=== PATIENT | female | born 1995 | race African-American/Black ===

== ENCOUNTER 2017-06-24 09:21 | Observation (INO) | payer OTHER ==
[2017-06-24 10:57] LABS: ABS Basophils 0.1 10^3/ul (0-0.2); ABS Eosinophils 0.2 10^3/ul (0-0.6); ABS Lymphocytes 2.9 10^3/ul (1.0-4.8); ABS Monocytes 1.1 10^3/ul (0-0.8); ABS Neutrophils 6.7 10^3/ul (1.5-7.7); ABS Nucleated RBC 0 10^3/ul; Eosinophil % 2.3 % (0-6); Hematocrit 34 % (35-47); Hemoglobin 11.8 g/dl (12.0-16.0); Lymphocyte % 26.5 % (25-47); Mean Corpuscular HGB Conc 35 g/dl (31-36); Mean Corpuscular Hemoglobin 28 pg (27-31); Mean Corpuscular Volume 80 fL (80-97); Mean Platelet Volume 8.8 um3 (7.4-10.4); Nucleated Red Blood Cells % 0.2; Platelet Count 289 10^3/ul (150-450); Red Blood Count 4.23 10^6/ul (4.0-5.4); Red Cell Distribution Width 13 % (10.5-15)
[2017-06-24 11:11] LABS: EGFR Non-African American 88.9 (>60)
--- NOTE | 2017-06-24 19:20 | ED ---
Yaneth Crockett Gabriel, scribed for Vlad Faith MD on 06/24/17 at 0948 . Psychiatric Complaint - HPI Summary HPI Summary: This patient is a 22 year old F BIBA to [facility] for a MHE. Pt states she took 30 mg of vyvanse and her normal does of lexapro this morning. Hx of anxiety and ADHD. The patient does not respond to all questions. She attends [employer] and lives off campus - History Of Current Complaint Time Seen by Provider: 06/24/17 09:23 Hx Obtained From: Patient Onset/Duration: Still Present Timing: Constant Severity Initially: Moderate Severity Currently: Moderate Ingestion History: Type/Name Of Drug - lexapro - Allergies/Home Medications Allergies/Adverse Reactions: Allergies Allergy/AdvReac Type Severity Reaction Status Date / Time No Known Allergies Allergy Verified 02/25/16 08:35 Home Medications: Home Medications Escitalopram (NF) [Lexapro 20 mg (NF)] 20 mg PO DAILY 06/24/17 [History Confirmed 06/24/17] Lisdexamfetamine(NF) [Vyvanse(NF)] 30 mg PO DAILY 06/24/17 [History Confirmed ] Mirtazapine TAB* [Remeron TAB*] 15 mg PO DAILY 06/24/17 [History Confirmed 06/24] PMH/Surg Hx/FS Hx/Imm Hx Endocrine/Hematology History: Reports: Hx Anemia - BORDERLINE Denies: Hx Sickle Cell Disease Cardiovascular History: Denies: Other Cardiovascular Problems/Disorders Respiratory History: Denies: Other Respiratory Problems/Disorders GI History: Denies: Other GI Disorders History: Reports: Hx Kidney Stones - RIGHT KIDNEY SYMPTOMS SINCE 02/07/16 Sensory History: Denies: Hx Contacts or Glasses, Hx Hearing Aid Opthamlomology History: Denies: Hx Contacts or Glasses Neurological History: Denies: Other Neuro Impairments/Disorders Psychiatric History: Reports: Hx Anxiety - ON MEDS, Hx Depression - ON MEDS - Surgical History Surgery Procedure, Year, and Place: 02/20/16 URETERAL ST[place] [facility] [place] Anesthesia Reactions: No - Family History Known Family History: Negative: Renal Disease, Respiratory Disease, Seizure Disorder - Social History Occupation: Student Lives: Dormitory/Roommates Alcohol Use: Rare Alcohol Amount: 3 Q 2 WEEKS Substance Use Type: Reports: Marijuana Substance Use Comment - Amount & Last Used: RARE USE Smoking Status (MU): Never Smoked Tobacco Have You Smoked in the Last Year: No Review of Systems Negative: Skin Diaphoresis Positive: Depressed All Other Systems Reviewed And Are Negative: Yes Physical Exam - Summary Physical Exam Summary: General: well-appearing, no pain distress Skin: warm, color reflects adequate perfusion, dry Head: normal Eyes: EOMI, DANIELLE ENT: normal Neck: supple, nontender Respiratory: CTA, breath sounds present Cardiovascular: RRR Abdomen: soft, nontender Bowel: present Musculoskeletal: normal, strength/ROM intact Neurological: normal, sensory/motor intact, A&O x3 Psychological: depressed affect Triage Information Reviewed: Yes Vital Signs On Initial Exam: Initial Vitals Temp Pulse Resp BP Pulse Ox 99.9 F 105 16 131/87 97 06/24/17 09:40 06/24/17 09:40 06/24/17 09:40 06/24/17 09:40 06/24/17 09:40 Vital Signs Reviewed: Yes Diagnostics - Vital Signs Vital Signs Temp Pulse Resp BP Pulse Ox 06/24/17 17:56 98.7 F 103 18 124/107 100 06/24/17 11:28 98.7 F 107 18 116/89 100 06/24/17 09:40 99.9 F 105 16 131/87 97 - Laboratory Lab Results: Lab Results 06/24/17 06/24/17 Range/Units 10:35 10:35 WBC 11.0 H (3.5-10.8) 10^3/ul RBC 4.23 (4.0-5.4) 10^6/ul Hgb 11.8 L (12.0-16.0) g/dl Hct 34 L (35-47) % MCV 80 (80-97) fL MCH 28 (27-31) pg MCHC 35 (31-36) g/dl RDW 13 (10.5-15) % Plt Count 289 (150-450) 10^3/ul MPV 8.8 (7.4-10.4) um3 Neut % (Auto) 60.7 (38-83) % Lymph % (Auto) 26.5 (25-47) % [place] % (Auto) 9.8 H (0-7) % Eos % (Auto) 2.3 (0-6) % Baso % (Auto) 0.7 (0-2) % Absolute Neuts (auto) 6.7 (1.5-7.7) 10^3/ul Absolute Lymphs (auto) 2.9 (1.0-4.8) 10^3/ul Absolute Monos (auto) 1.1 H (0-0.8) 10^3/ul Absolute Eos (auto) 0.2 (0-0.6) 10^3/ul Absolute Basos (auto) 0.1 (0-0.2) 10^3/ul Absolute Nucleated RBC 0 10^3/ul Nucleated RBC % 0.2 Sodium 137 L (139-145) mmol/L Potassium 3.3 L (3.5-5.0) mmol/L Chloride 103 (101-111) mmol/L Carbon Dioxide 23 (22-32) mmol/L Anion Gap 11 (2-11) mmol/L BUN 9 (6-24) mg/dL Creatinine 0.80 (0.51-0.95) mg/dL Est GFR ( Amer) 114.3 (>60) Est GFR (Non-Af Amer) 88.9 (>60) BUN/Creatinine Ratio 11.3 (8-20) Glucose 90 (70-100) mg/dL Calcium 9.3 (8.6-10.3) mg/dL Total Bilirubin 0.50 (0.2-1.0) mg/dL AST 15 (13-39) U/L ALT 6 L (7-52) U/L Alkaline Phosphatase 44 (34-104) U/L Total Protein 7.6 (6.4-8.9) g/dL Albumin 4.1 (3.2-5.2) g/dL Globulin 3.5 (2-4) g/dL Albumin/Globulin Ratio 1.2 (1-3) TSH 5.45 (0.34-5.60) mcIU/mL Beta HCG, Quant < 0.60 mIU/mL Salicylates < 2.50 (<30) mg/dL Acetaminophen < 15 mcg/mL Serum Alcohol < 10 (<10) mg/dL Result Diagrams: 06/24/17 10:35 06/24/17 10:35 Lab Statement: Any lab studies that have been ordered have been reviewed, and results considered in the medical decision making process. Course/Dx - Course Assessment/Plan: The patient is a 22 year old female presenting with a psychiatric complaint. The patient was medically cleared for mental health evaluation. She is awaiting mental health evaluation at this time and will be signed out to Dr. Leavitt at shift change pending mental health evaluation. - Differential Dx/Clinical Impression Provider Diagnosis: Mental health problem Discharge - Sign-Out/Discharge Documenting (check all that apply): Sign-Out Patient Signing out patient TO: Dmitry Leavitt - Discharge Plan Condition: Stable Disposition[place] [facility] [place]errals: [facility] - Markel FAROOQ [Primary Care Provider] - - Billing Disposition and Condition Condition: STABLE Disposition: [facility] The documentation as recorded by the Yaneth loevll Gabriel accurately reflects the service I personally performed and the decisions made by , Vlad Faith MD.
[2017-06-24] MEDS ORDERED: Potassium Chlor TAB* 20 MEQ TAB.ER PO ONE (19:36)
[2017-06-24] MEDS ORDERED: cloNIDine TAB* 0.1 MG PO ONE (19:36)
[2017-06-24 20:41] LABS: Urine Appearance Cloudy; Urine Blood 2+ (Negative); Urine Color Yellow; Urine Ketones Negative (Negative); Urine Protein Negative (Negative); Urine Specific Gravity 1.008 (1.010-1.030); Urine Urobilinogen Negative (Negative)
[2017-06-24] MEDS ORDERED: GuaiFENesin DM* 5 ML UDC PO ONE (20:53)
[2017-06-24] MEDS ORDERED: Codeine TAB* 30 MG PO ONE (23:32)
[2017-06-25] MEDS ORDERED: LORazepam TAB(*) 1 MG PO ONE (01:45)
[2017-06-25] MEDS ORDERED: NS 0.9% 1000 ML* 2,000 ML IV ONE (04:27)
[2017-06-25] MEDS ORDERED: Lidocaine 2% EPI 1:200000 MPF*10-20 ML VIAL ONE (05:02)
[2017-06-25 05:39] LABS: ABS Basophils 0 10^3/ul (0-0.2); ABS Eosinophils 0.2 10^3/ul (0-0.6); ABS Lymphocytes 2.1 10^3/ul (1.0-4.8); ABS Monocytes 1.1 10^3/ul (0-0.8); ABS Neutrophils 7.2 10^3/ul (1.5-7.7); ABS Nucleated RBC 0 10^3/ul; Eosinophil % 2.2 % (0-6); Hematocrit 34 % (35-47); Hemoglobin 12.1 g/dl (12.0-16.0); Lymphocyte % 19.5 % (25-47); Mean Corpuscular HGB Conc 36 g/dl (31-36); Mean Corpuscular Hemoglobin 29 pg (27-31); Mean Corpuscular Volume 80 fL (80-97); Mean Platelet Volume 8.4 um3 (7.4-10.4); Nucleated Red Blood Cells % 0.1; Platelet Count 293 10^3/ul (150-450); Red Blood Count 4.19 10^6/ul (4.0-5.4); Red Cell Distribution Width 13 % (10.5-15); White Blood Count 10.6 10^3/ul (3.5-10.8)
[2017-06-25 05:56] LABS: EGFR Non-African American 85.2 (>60)
[2017-06-25] MEDS ORDERED: Docusate CAP* 100 MG PO PRN (06:28)
[2017-06-25] MEDS ORDERED: Acetaminophen TAB* 325 MG PO PRN (06:28)
[2017-06-25] MEDS ORDERED: Senna TAB PO PRN (06:28)
[2017-06-25] MEDS ORDERED: Ondansetron INJ* 2 MG/ML VIAL IV PRN (06:28)
[2017-06-25] MEDS ORDERED: Al Hydrox/Mg Hydrox/Simet LIQ* 30 ML UDC PO PRN (06:28)
[2017-06-25] MEDS ORDERED: NS 0.9% 1000 ML* 1,000 ML IV ONE (06:30)
[2017-06-25] MEDS ORDERED: NS 0.9% 1000 ML* 1,000 ML IV SCH ×2 (06:30→16:29)
--- NOTE | 2017-06-25 06:43 | ED ---
Lisa Crockett Thomas, scribed for Dmitry Leavitt MD on 06/24/17 at 1938 . Progress - Progress Note Progress Note: The patient is a sign out from Dr. Faith at shift change, pending mental health evaluation. I evaluated the patient at 19:20 on 06/24/17. The patients blood pressure was measured at 153/101. She is asymptomatic at this time. The drug screen is pending. The patient will be given clonidine 0.1 mg. At 06/25/17, the patient has been here 20 hours. She is still confused. Her drug screen is negative. The patient does have tachycardia. She is confused and there are no drugs on board. I attempted a spinal tap. LUMBAR PUNCTURE PROCEDURE NOTE: I did discuss the need for a spinal tap due to the confusion to rule out encephalopathy. The mother was hesitant to go forward with the spinal tap, but she agreed. The patient was no cooperative in lying still for the spinal tap. I did attempt three times, but the patient's mother asked me to stop. Therefore, the procedure was aborted and we did not complete the spinal tap. CT Head Interpreted by radiologist. Impression: Normal brain. No acute intracranial pathology. No hemorrhage. No visible infarct or mass. Osseous structures are intact. Dr. Leavitt has reviewed this report. EKG: Obtained at 05:39 Sinus tachycardia at 121 BPM Course/Dx - Diagnoses Provider Diagnoses: Confusion, Tachycardia - Provider Notifications Discussed Care Of Patient With: Sarah Pitts Time Discussed With Above Provider: 06:09 Instructed by Provider To: MD Will See In ED Discharge - Sign-Out/Discharge Documenting (check all that apply): Discharge - The patient will be admitted by Dr. Pitts. , Receiving Sign-Out Receiving patient FROM: Vlad Faith - Discharge Plan Condition: Stable Disposition: ADMITTED TO [facility] Markel FAROOQ [Primary Care Provider] - The documentation as recorded by the Lisa lovell Thomas accurately reflects the service I personally performed and the decisions made by Dagmar vasquez Abdul, MD.
[2017-06-25] MEDS: Benzonatate CAP* 100 MG PO PRN ×2 (07:27→22:24)
--- NOTE | 2017-06-25 08:10 | RAD ---
INDICATION: Confusion COMPARISON: None. TECHNIQUE: Contiguous axial sections of the brain were obtained from the skull base to the vertex without contrast. FINDINGS: The ventricles, cisterns and sulci are within normal limits. The peace-white matter differentiation is adequately maintained and there is no sulcal effacement. No significant focal abnormality or mass effect is present. There is no evidence for intracranial hemorrhage. No significant focal osseous abnormality is present. The visualized portion of the paranasal sinuses appear clear. The mastoid air cells are well aerated bilaterally. IMPRESSION: Normal CT of the brain.
--- NOTE | 2017-06-25 08:12 | RAD ---
HISTORY: Cough COMPARISONS: None VIEWS: 1: frontal portable view of the chest at 6:50 AM FINDINGS: LINES AND TUBES: None. CARDIOMEDIASTINAL SILHOUETTE: The cardiomediastinal silhouette is normal for portable technique. PLEURA: The costophrenic angles are sharp. No pleural abnormalities are noted. LUNG PARENCHYMA: There is asymmetric rounded density overlying the left lower lung measuring 1.8 cm in diameter. ABDOMEN: The upper abdomen is clear. There is no subphrenic gas. BONES AND SOFT TISSUES: No bone or soft tissue abnormalities are noted. IMPRESSION: 1.8 CM ROUNDED DENSITY OVERLYING THE LEFT LOWER LUNG. THIS MAY BE ARTIFACTUAL. RECOMMEND REPEAT IMAGING WITH PA, OBLIQUE, AND LATERAL VIEWS OF THE CHEST WITH NIPPLE MARKERS.
--- NOTE | 2017-06-25 10:38 | HP ---
CC: [facility] HISTORY AND PHYSICAL: DATE OF ADMISSION: 06/25/17 TIME OF EVALUATION: 0600. PRIMARY CARE PHYSICIAN: [facility]. CHIEF COMPLAINT: Altered mental status. HISTORY OF PRESENT ILLNESS: This is a 22-year-old female, [employer] student, who has a past medical history of depression, anxiety, ADHD, who presented to the emergency room for mental health evaluation and 9.41 status. The mother, who just arrived from [place], is at the bedside providing the history. She states that Cecilia's friend yesterday morning called the mom, concerned about her as she was pacing back and forth yesterday morning, would not answer any questions appropriately when mom tried to talk with her on phone and they felt that she should come to the emergency room for further evaluation. The patient has been in the emergency room for 21 hours. She was initially cleared by the ER physician, she was placed in the flex unit and then Mental Health evaluated, they were concerned about her altered mental status and persistent tachycardia and referred her back to medical evaluation before admitting her to the mental health unit. The mother states that the patient has had increase in stress. She last saw her back in February over and she felt that she was off and she was talking a lot about her friend, who committed suicide last year and she has been very upset by this and she had another friend that as well. The patient has been going to [facility] counseling 1 time a week for the past year. She tried to go to [facility], but she did not feel like they were as accessible for her. Mom states she has no history of altered mental status like this. She did have an episode where she was confused and the daughter felt it was due to ecstasy at that time last summer. In the emergency room, the patient has been still confused, not answering questions appropriately, shaking. She has been having some coughing. They were concerned about her elevated heart rate in the emergency room over the past 21 hours. The patient has gotten clonidine 0.1 mg , Robitussin 10 mL, lorazepam 2 mg, potassium chloride 40 mEq in 1 L of normal saline. I suspect due to the patient's altered mental status, she has not had anything to eat or drink, but it is unclear. PAST MEDICAL HISTORY: Depression, anxiety, ADHD, history of nephrolithiasis with stent placement. MEDICATIONS: 1. Remeron 15 mg p.o. daily. 2. Vyvanse 30 mg daily. 3. Lexapro 20 mg daily. ALLERGIES: No known drug allergies. FAMILY HISTORY: No history of mental health issues, it is unclear on the father 's side as mother is . 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 No history of tobacco, occasional alcohol and marijuana use per the mother, unclear of any other drug use. Her mother's name is Kacy. The patient is originally from [place]. REVIEW OF SYSTEMS: A 14-point review of systems attempted but unable to obtain due to the patient's altered mental status. PHYSICAL EXAMINATION GENERAL: The patient is sleeping and moaning, but does awake with gentle tactile stimulation, but does fall back to sleep easily. VITAL SIGNS: Temperature 98.1, pulse rate 100, respiratory rate 18, oxygen saturation 96% on room air, blood pressure 113/67. HEENT: Head is normocephalic. Pupils are equal and sluggish. Conjunctivae anicteric. Oropharynx: Mucous membranes are dry. NECK: Supple. No lymphadenopathy. RESPIRATORY: Clear to auscultation. No wheezes, rhonchi, or rales. CARDIAC: Tachycardia. No murmurs, rubs, or gallops. ABDOMEN: Soft, nontender. She did grimace with some pain when I palpated her abdomen. EXTREMITIES: No clubbing, cyanosis, or edema. DERM: No lesions or rashes. DIAGNOSTIC STUDIES/LAB DATA: White count 10.6, hemoglobin 12.1, hematocrit 34 , platelets 293. Sodium 134, potassium 4.2, chloride 103, bicarb 22, BUN 9, creatinine 0.83, glucose 104. TSH 5.4. Beta hCG is negative. Urine shows 2+ blood. Toxicology is negative except for positive cannabinoids. [place] screen is negative. Head CT: No acute intracranial abnormality. EKG shows sinus tachycardia with a rate of 121. 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 The patient has been persistently tachycardic and confused with unremarkable workup. Altered mental status and tachycardia. Assessment: I suspect this is related to ingestion and dehydration. The patient probably has not had much to eat or drink over the past 21 hours with the exception of 1 L of fluid. She is also on a stimulant that could increase her heart rate. She does have 2+ blood in her urine, and some abdominal discomfort. Appears she has been under a tremendous amount of stress and having a close friend committing suicide. Concern for multifactorial etiology contributing to her altered mental status. Plan: We will give her another bolus of fluid and put her on maintenance fluids. We will get an ultrasound of her kidneys and bladder to rule out a stone and consult Psychiatry for further evaluation. We will also check an ammonia to rule out any underlying potential encephalopathy, but less likely on the differential. I suspect with hydration, her heart rate will improve and the patient should be evaluated by Mental Health at that time. CHRONIC MEDICAL PROBLEMS: 1. I am going to hold her psychotropic agents and her Vyvanse for now in the setting of altered mental status and defer to Mental Health for further guidance on this. 2. FEN. We will place a bedside nursing swallow eval before allowing her to have a regular diet. 3. DVT prophylaxis. The patient scores as a 0. We will encourage ambulation. She will need a constant chemicals distiller as well. 4. Code status. Full code. PATIENT TIME: Greater than 45 minutes was spent doing the history and physical , more than half the time was spent in direct patient contact. [id number]/CPS #: [id number] MTDD
[2017-06-25 12:01] LABS: Urine Appearance Clear; Urine Blood 2+ (Negative); Urine Color Yellow; Urine Ketones 1+ (Negative); Urine Protein Negative (Negative); Urine Specific Gravity 1.012 (1.010-1.030); Urine Urobilinogen Negative (Negative)
--- NOTE | 2017-06-25 13:29 | CONSULT ---
Consult Consult: Psychiatry asked to see this 22 y.o. 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 eCcilia was barely arousable upon examination and the 1:1 aide indicated that she had been sleeping most of the day. rn staff indicates that patient making odd statements during brief periods of wakefulness. Patient has not endorsed SI or HI as far as documentation reveals. Due to inability to collect history from the patient I will revisit her tomorrow in the afternoon. Full dictated consultation report, with recommendations, to follow at that point. For now I will d/c 1:1 observations as no evidence that the patient is an acute risk to herself. Psychiatry will continue to follow.
--- NOTE | 2017-06-25 16:24 | PN ---
Subjective Date of Service: 06/25/17 Interval History: Patient very sleepy falling asleep mid sentence, not making much sense. States that she has been very depressed and stress and school. reports that she took some sleeping pills and smoked some marijuana. states that she is just very tired right now. denies any other complaints Family History: Unchanged from Admission Social History: Unchanged from Admission Past Medical History: Unchanged from Admission Objective Active Medications: Acetaminophen (Tylenol Tab*) 650 mg PO Q4H PRN PRN Reason: FEVER/PAIN Al Hydrox/Mg Hydrox/Simethicone (Maalox Plus*) 30 ml PO Q6H PRN PRN Reason: INDIGESTION Benzonatate (Tessalon Cap*) 100 mg PO BID PRN PRN Reason: COUGH Last Admin: 06/25/17 07:27 Dose: 100 mg Docusate Sodium (Colace Cap*) 100 mg PO BID PRN PRN Reason: CONSTIPATION Sodium Chloride (Ns 0.9% 1000 Ml*) 1,000 mls @ 150 mls/hr IV PER RATE DREAD Last Admin: 06/25/17 09:17 Dose: 150 mls/hr Ondansetron HCl (Zofran Inj*) 4 mg IV Q4H PRN PRN Reason: NAUSEA/VOMITING Senna (Senokot Tab*) 1 tab PO BID PRN PRN Reason: CONSTIPATION Vital Signs - 8 hr 06/25/17 06/25/17 06/25/17 08:18 15:47 15:59 Temperature 98.6 F Pulse Rate 103 118 108 Respiratory 17 21 Rate Blood Pressure 101/72 85/69 119/77 (mmHg) O2 Sat by Pulse 98 100 Oximetry Oxygen Devices in Use Now: None Appearance: appears tired, hard to keep awake Eyes: No Scleral Icterus Ears/Nose/Mouth/Throat: Clear Oropharnyx, Mucous Membranes Moist Neck: NL Appearance and Movements; NL JVP, Trachea Midline Respiratory: Symmetrical Chest Expansion and Respiratory Effort, Clear to Auscultation Cardiovascular: RRR, No Edema Abdominal: NL Sounds; No Tenderness; No Distention Extremities: No Edema, No Clubbing, Cyanosis Skin: No Rash or Ulcers Neurological: Alert and Oriented x 3 Nutrition: Taking PO's Result Diagrams: 06/25/17 05:29 06/25/17 05:29 Additional Lab and Data: Lab Results 06/24/17 06/24/17 Range/Units 10:35 10:35 WBC 11.0 H (3.5-10.8) 10^3/ul RBC 4.23 (4.0-5.4) 10^6/ul Hgb 11.8 L (12.0-16.0) g/dl Hct 34 L (35-47) % MCV 80 (80-97) fL MCH 28 (27-31) pg MCHC 35 (31-36) g/dl RDW 13 (10.5-15) % Plt Count 289 (150-450) 10^3/ul MPV 8.8 (7.4-10.4) um3 Neut % (Auto) 60.7 (38-83) % Lymph % (Auto) 26.5 (25-47) % [place] % (Auto) 9.8 H (0-7) % Eos % (Auto) 2.3 (0-6) % Baso % (Auto) 0.7 (0-2) % Absolute Neuts (auto) 6.7 (1.5-7.7) 10^3/ul Absolute Lymphs (auto) 2.9 (1.0-4.8) 10^3/ul Absolute Monos (auto) 1.1 H (0-0.8) 10^3/ul Absolute Eos (auto) 0.2 (0-0.6) 10^3/ul Absolute Basos (auto) 0.1 (0-0.2) 10^3/ul Absolute Nucleated RBC 0 10^3/ul Nucleated RBC % 0.2 Sodium 137 L (139-145) mmol/L Potassium 3.3 L (3.5-5.0) mmol/L Chloride 103 (101-111) mmol/L Carbon Dioxide 23 (22-32) mmol/L Anion Gap 11 (2-11) mmol/L BUN 9 (6-24) mg/dL Creatinine 0.80 (0.51-0.95) mg/dL Est GFR ( Amer) 114.3 (>60) Est GFR (Non-Af Amer) 88.9 (>60) BUN/Creatinine Ratio 11.3 (8-20) Glucose 90 (70-100) mg/dL Calcium 9.3 (8.6-10.3) mg/dL Total Bilirubin 0.50 (0.2-1.0) mg/dL AST 15 (13-39) U/L ALT 6 L (7-52) U/L Alkaline Phosphatase 44 (34-104) U/L Total Protein 7.6 (6.4-8.9) g/dL Albumin 4.1 (3.2-5.2) g/dL Globulin 3.5 (2-4) g/dL Albumin/Globulin Ratio 1.2 (1-3) TSH 5.45 (0.34-5.60) mcIU/mL Beta HCG, Quant < 0.60 mIU/mL Salicylates < 2.50 (<30) mg/dL Acetaminophen < 15 mcg/mL Serum Alcohol < 10 (<10) mg/dL Assess/Plan/Problems-Billing Assessment: Ms. Pierce is a 22 y.o female with a history of depression, anxiety and ADHD who presented to the emergency room for mental health evaluation. The patient was found pacing in her room not making sense. - Patient Problems (1) Depression Current Visit: Yes Status: Acute Code(s): F32.9 - MAJOR DEPRESSIVE DISORDER , SINGLE EPISODE, UNSPECIFIED SNOMED Code(s): 45711415 Comment: -Suspect this is releated increased stress at school and recent of friends - will continue supportive care - diet as tolerated - psych consulted (2) Anxiety Current Visit: Yes Status: Acute Code(s): F41.9 - ANXIETY DISORDER, UNSPECIFIED SNOMED Code(s): 00118638 Comment: supoortive care (3) DVT prophylaxis Current Visit: Yes Status: Acute Code(s): CIG3043 - SNOMED Code(s): 691635868 Comment: ambulate (4) Full code status Current Visit: Yes Status: Acute Code(s): Z78.9 - OTHER SPECIFIED HEALTH STATUS SNOMED Code(s): 283236838 Status and Disposition: inpatient
[2017-06-26] MEDS: Benzonatate CAP* 100 MG PO PRN (04:28)
[2017-06-26 11:50] VITALS: BP 117/85
[2017-06-26] MEDS ORDERED: Phenytoin CHEW TAB(*) 50 MG PO SCH (14:00)
--- NOTE | 2017-06-27 01:07 | DS ---
CC: [facility]* DISCHARGE SUMMARY: DATE OF ADMISSION: 06/25/17 DATE OF DISCHARGE: 06/26/17 ATTENDING PHYSICIAN: Angelica Sunshine MD* (dictated by Cecilia Bird NP). PRIMARY CARE PROVIDER: [facility]. PRIMARY DIAGNOSES: 1. Unspecified psychosis. 2. Possible overdose of cannabinoids. SECONDARY DIAGNOSES: 1. Depression. 2. Anxiety. 3. Attention deficit hyperactivity disorder. STUDIES COMPLETED WHILE IN THE HOSPITAL: She had a CT of the brain on 06/25/17 , normal CT of the brain. She had an EKG on 06/25/17, which showed sinus tachycardia at a rate of 121. She did have a chest x-ray during this hospitalization. Radiologist impression : There is a 1.8 cm round density overlying the left lower lung. This may be artifactual. Recommend repeat imaging with PA, oblique, and lateral views of the chest with nipple markers. She should have a repeat chest x-ray PA and lateral with nipple markers to evaluate this 1.8 cm round density. DISCHARGE MEDICATIONS: Tessalon Perles 100 mg p.o. b.i.d. Continued home medications: 1. Remeron 15 mg p.o. daily. 2. Vyvanse 30 mg p.o. daily. 3. Lexapro 20 mg p.o. daily. 4. She is going to continue with acetaminophen 650 mg p.o. q.4 hours as needed for pain. HISTORY OF PRESENT ILLNESS AND HOSPITAL COURSE: Ms. Pierce is a 22-year-old female who is currently a [employer] student with a past medical history of depression, anxiety, ADHD, who presented to the emergency room for mental health evaluation on a 9.41 status with [facility] police. Per the report, the mother states that Cecilia's friend called her yesterday morning concerned about her as she was pacing back and forth yesterday morning and would not answer any questions appropriately when mom tried to talk to her on the phone and they felt that she should come to the emergency room for further evaluation. She had been in the emergency room for 21 hours. The patient was initially cleared by the emergency room physician and placed in the flex unit and then mental health evaluation. They were concerned about her altered mental status and persistent tachycardia and referred back to medical evaluation before admitting her to the mental health unit. The mother states that she has increased stress. She saw her last in February over and she felt that she was off and was talking a lot about her friend, who committed suicide last year and she has been very upset by this and she had another friend who as well. The patient has been seeking outpatient therapy from [facility] once a week for the past year. During her hospitalization, she was monitored on telemetry. Her tachycardia subsided. She did receive IV hydration. On the evening of 06/25/17, the patient was alert and oriented and conversing. She is tearful at times discussing college and all the stress related to her current studies. She does make bizarre statements at times. She was evaluated on 06/26/17. She was alert and oriented x3. We discussed her college plans and at this time she has a plan to return to [place] with her mother as she does not feel she can complete her college courses at this time. She also received a psychiatric consult from Dr. Hong during this admission. He felt that she needed to be observed in the mental health unit. At this time, she is stable to be transferred to the mental health unit for further evaluation and support psychiatrically. Ms. Pierce will be transferred to mental health today on . Vital signs are as follows: Temperature was 97.9, heart rate was 83, respirations 16, O2 saturation was 100%, blood pressure 120/68 and 117/85. DISCHARGE PLAN: Ms. Pierce will be discharged to mental health unit. 1. Activity as tolerated. 2. Depression and anxiety. Acute psychosis. Management per mental health unit. FOLLOWUP: The patient should follow up with outpatient counseling as prescribed by the mental health unit when she is able to be discharged from the mental health unit. The patient should return to the emergency room if she develops any suicidal or homicidal ideation, any increased depression or anxiety or any other concerning symptoms such as chest pain or shortness of breath. At this time, she will be placed in the mental health unit. These symptoms can be observed at this time. This is a summarization of her hospitalization. For further details, please see the entire medical record. TIME SPENT: Time spent on this discharge was approximately 60 minutes, greater than half that time was spent with the patient discussing transfer plans to the mental health unit. CONDITION ON DISCHARGE: Stable. CECILIA BIRD, STITCHING MACHINE FEEDER OR OFFBEARER [id number]/[facility] #: [id number] T[facility] HOSPITALMadai
== END 2017-06-26 18:00 ==
LOC: ED 09:21 → MED 06-25 06:28 → BSU 06-26 17:59
PROVIDERS: ADMIT Pediatrics; ATTEND Pediatrics
DX: F29 Unspecified psychosis not due to a substance or known physiological condition (principal); F41.9 Anxiety disorder, unspecified; F32.9 Major depressive disorder, single episode, unspecified; F90.9 Attention-deficit hyperactivity disorder, unspecified type; Z79.899 Other long term (current) drug therapy; R10.9 Unspecified abdominal pain; R00.0 Tachycardia, unspecified; J98.4 Other disorders of lung
CPT/HCPCS: 36415; 70450; 71045; 80053; 80061; 80307; 80320; 80329; 81003; 81015; 82140; 82550; 83036; 83605; 84443; 84702; 85025; 86308; 87086; 93005; 96360; 96361; 99285; A9270-GY; G0378; G0480

== ENCOUNTER 2017-06-26 16:00 | Inpatient (IN) | payer OTHER ==
[2017-06-26] MEDS ORDERED: Al Hydrox/Mg Hydrox/Simet LIQ* 30 ML UDC PO PRN (16:23)
--- NOTE | 2017-06-26 19:59 | HP ---
PSYCHIATRIC HISTORY AND PHYSICAL: DATE OF ADMISSION: 06/26/17 JUSTIFICATION FOR ADMISSION: The patient is in need of 24-hour supervision and care secondary to psychotic and bizarre behaviors rendering it impossible and unsafe to treat her in a less restrictive setting. 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 The patient is accompanied by her mother, Chanelle, who indicates that she lives in and was called several days ago by one of the patient's friends indicating that Cecilia was acting strangely. She promptly got a plane ticket to come here. In the intervening time, the friend called the police and 911 and the patient was transferred by emergency medical services to the hospital. At that time, she was briefly evaluated in the ED flex base but was extremely tachycardic despite receiving p.o. Ativan. For this reason, she was instead hospitalized on the medical service. There, I tried to interview her on 06/25/17; however, she was extremely sedated and her mother was not present at that time. I was able to reach her outpatient therapist, a woman named Sima Vaca. Sima indicated that the patient has always had problems with depression and anxiety, but when they last saw each other 1 week ago, she noted that the patient was speaking very fast. She appeared to be labile, bursting into tears at times. She denied suicidal or homicidal ideations and so they allowed her to leave with a planned followup later this week. Sima was aware of occasional THC usage as well as 2 recent losses, one of the patient's friends of suicide in December of 2016 and a half year earlier, the patient had lost a separate friend to heart failure. She had recently taken a semester off due to intractable anxiety and she is currently a 5th year senior. Later, I spoke with the patient's outpatient nurse practitioner, Yohana Sanchez, who states that she started working with Cecilia in March and that she had a classic diagnosis of anxiety, depression, and ADHD. They had played around with her Vyvanse dosing, but she had trouble sleeping and appetite disturbances and was therefore started recently on mirtazapine. On the date of admission, I reevaluated the patient and found her awake and alert in bed. She was accompanied by her mother, Chanelle. Chanelle immediately showed me her phone in which she had typed down some odd statements that Cecilia had been making during the day to the effect that she was turning into a turtle and that she was angry. When I spoke with Cecilia at times, she had moments of lucidity but at other times, she was bizarre, for example, making statements that "I think in color, but the TV is in black and white, I have no fingerprints" and was also mentioning that she had a glass bong that she had lost within a pool of water. For these reasons, I strongly suggested transfer to the inpatient psychiatric service and both the patient and her mother were agreeable with this. In terms of recent stressors, the patient has been struggling in school because of ADHD and because the recent loss of her 2 friends. She also feels unsupported and belittled by classmates with whom she is doing group projects. She was supposed to graduate in 3 weeks from now from [employer], but had no plans for work thereafter and was starting to get stressed about what she would do with her life. She does indicate that she went 3 days without sleeping prior to this event occurring over the previous several days. An additional stressor is that she went to a local herbal store and was taking some strange herbal supplements called adaptogen. It is uncertain whether these contributed to her current mental state. I do note that her urine drug screen is dirty for cannabis and she does endorse smoking a great deal of marijuana recently. PAST PSYCHIATRIC HISTORY: As previously noted, she sees Sima Washington and Shirley Sanchez at the local [facility]. Prior to this, she had seen a psychiatrist at [facility]. In the past, she has been treated with fluoxetine, methylphenidate, Wellbutrin, and Strattera , all with limited efficacy. Currently, she receives Vyvanse 30 mg daily, Lexapro 20 mg daily, and Remeron 15 mg daily. She has a no prior history of suicide attempts. She has no prior history of psychiatric hospitalizations. I asked about abuse or neglect growing up and she indicates that she was somewhat estranged from her father because he was often invalidating and unkind to her. SUBSTANCE ABUSE HISTORY: Significant for a large amounts of cannabis. She denies any use of alcohol or tobacco. PAST MEDICAL HISTORY: Significant for an upper respiratory tract viral infection currently, but negative otherwise. CURRENT MEDICATIONS: Include: 1. Vyvanse 30. 2. Lexapro 20. 3. Remeron 15. ALLERGIES: She denies having any known drug allergies. FAMILY HISTORY: Noncontributory. SOCIAL HISTORY: The patient was born and raised in [place], [place]. Her parents when she was young and she is an only child. She did well in high school and was able to get into [employer] and she is a dual major. 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 Her grades tend to be fair, although she has taken a semester off in the past due to anxiety. She is currently a 5th year senior, who does not know at this time what she will do after graduation. The patient is not currently in any significant relationship. She has never been in the and has no active legal problems. REVIEW OF SYSTEMS: The patient is endorsing significant rhinorrhea and cough. Other than this, she denies headache or double vision. She denies sore throat, chest pain, or difficulty breathing. She denies abdominal pain, nausea, vomiting, diarrhea, or constipation. She denies difficulty ambulating, rashes, enlarged lymph nodes, fevers, or changes in weight. PHYSICAL EXAMINATION VITAL SIGNS: Blood pressure 117/85, heart rate is 83, respiratory rate 16, temperature 97.9 degrees Fahrenheit, oxygen saturations are 95% on room air. HEENT: Head is normocephalic, atraumatic. NECK: Supple. CHEST: Clear to auscultation bilaterally. CARDIAC: Exam reveals normal heart sounds. ABDOMEN: Soft, nontender. MUSCULOSKELETAL: Exam reveals no sign of edema. NEUROLOGICAL: She is grossly intact with no focal deficits. SKIN: Warm and dry. MENTAL STATUS EXAMINATION: The patient is a young, petite, female, with long dreadlock hair, partially in tressa. She is calm, cooperative , but somewhat oddly related. Speech is halting at times. Mood appears to be anxious with a corresponding anxious affect. Thought process is linear and goal directed. Thought content is significant for odd statements and beliefs such as not having any fingerprints. She denies auditory or visual hallucinations. She denies suicidal or homicidal ideations. Insight and judgment are somewhat limited given her abuse of cannabis recently and not taking prescribed medications. Cognitively, she is awake and alert with what would appear to be an average intellect. LABORATORY DATA: Her complete blood count indicates mildly low hematocrit of 34 , complete metabolic panel significant for slightly elevated glucose of 104, slightly low sodium of 134. TSH is mildly elevated at 5.71. Urinalysis is significant for 2+ blood and trace leukocytes esterases. Urine drug screen is positive for cannabinoids and negative for all other substances including amphetamines despite the fact that she is on a psychostimulant. DIAGNOSES: As follows: [place] I: Unspecified psychotic disorder, rule out bipolar karen with psychotic features versus substance-induced psychotic disorder; cannabis use disorder; major depressive disorder by history, attention deficit hyperactivity disorder by history. [place] II: Deferred. ASSESSMENT: The patient is a 22-year-old, single, female, [employer] [facility], in the [employer] studies department, who was brought in by ambulance after her friends called 911 because she was acting strange. She was subsequently admitted to the medical service due to tachycardia, but her heart rates have normalized and she is now pending admission to the behavioral science unit secondary to psychosis and bizarre behavior. It is uncertain whether this represents a primary mental illness which is perhaps bipolar disorder versus her abusing both cannabis and herbal substances from the community. PLAN: The patient is admitted to the adult behavioral health unit where she is placed on q.15-minute checks for her own safety. We will be holding all of her meds and seeing if detoxifying her from cannabis and herbal substances is enough to get her euthymic and restore her reality testing. If not, we may move towards the bipolar disorder diagnosis in which we would be likely starting an antipsychotic and a mood stabilizer. The patient and her mother are agreeable but I am going to put them on an involuntary status in the event that the patient attempts to elope during the state of confusion. [facility] where she sees Yohana Sanchez and Sima Washington. [id number]/[facility] #: [id number] [facility]OL[facility] HEALTHMadai
--- NOTE | 2017-06-27 12:49 | PN ---
Subjective - Subjective Date of Service: 06/27/17 Service Type: 35505 Hosp care 15 min low complexity Subjective: Justino is found in her room sleeping, but is easily aroused. She remains bizarre, telling me a story about how she searched her glass bong with a black light to see if any impurities could be found in the water that would explain her symptoms. "And then I saw the water glowing and I saw that my skin was glowing." She hands me a paper with incoherent scribblings and says it's an account of her former friends in [place]. "I don't even know if they're still alive, many of them were ." She denies SI or HI. Mother, Chanelle, is in town from [place] and remains concerned about the patient's wellbeing. Objective - Appearance Appearance: Thin Framed Hygiene: Normal Grooming: Fairly Well Kept - Behavior Psychomotor Activities: Normal Exhibits Abnormal Movement: No - Attitude and Relatedness Attitude and Relatedness: Psychotically Related Eye Contact: Fair - Speech Quality: Pressured Latencies: Short Quantity: Copious - Mood Patient's Decription of Mood: "Okay" - Affect Observed Affect: Expansive Affect Consistent with: Euthymia - Thought Process Patient's Thought Process: Disorganized Thought Content: Yes Paranoid Ideation, No Passive Wish, No Suicidal Planning, No Homicidal Ideation - Sensorium Experiencing Hallucinations: No, Sensorium is Clear Type of Hallucinations: Visual: No, Auditory: No, Command: No - Level of Consciousness Level of Consciousness: Alert Orientation: Yes Intact, Yes Orientated to Time, Yes Orientated to Place, Yes Orientated to Person - Impulse Control Impulse Control: Poor - Insight and Judgement Insight and Judgement: Impaired - Group Participation Particating in Group Activities: No - Medication Management Medication Management Adherence: Yes Assessment - Assessment Merits Inpatient Hospitalization: For Immediate Safety, For Stabilization Inpatient DSM-V Dx: F29 Clinical Impression: 22 y.o. 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 Plan - Plan Treatment Plan: Name: JUSTINO FOSTER Birthdate: 1995 [id number] The patient remains psychotic. We are uncertain of the etiology: substance induced versus bipolar karen. Currently we are holding all meds and attempting to detoxify her. If she remains symptomatic we may lean towards a bipolar diagnosis and initiate mood stabilizer and antipsychotic therapy. Continue inpatient care. Continued Medication Management: Consider Medication Medications: Current Medications Acetaminophen (Tylenol Tab*) 650 mg PO Q4H PRN PRN Reason: for pain; or Temp >101 F Al Hydrox/Mg Hydrox/Simethicone (Maalox Plus*) 30 ml PO Q4H PRN PRN Reason: INDIGESTION Quetiapine Fumarate (Seroquel Tab*) 50 mg PO Q6H PRN PRN Reason: ANXIETY - Discharge Plan Discharge Plan: Inpatient Hospitalization
[2017-06-27] MEDS: QUEtiapine TAB* 25 MG PO PRN (20:46)
[2017-06-27] MEDS: Acetaminophen TAB* 325 MG PO PRN (20:46)
[2017-06-28] MEDS: Acetaminophen TAB* 325 MG PO PRN ×2 (05:52→12:41)
[2017-06-28] MEDS: QUEtiapine TAB* 25 MG PO PRN ×2 (09:25→20:45)
[2017-06-28] MEDS: Benzocaine/Menthol LOZ* 1 LOZENGE PO PRN ×3 (12:43→20:45)
[2017-06-29] MEDS: Benzocaine/Menthol LOZ* 1 LOZENGE PO PRN ×6 (01:50→22:01)
[2017-06-29] MEDS: QUEtiapine TAB* 25 MG PO PRN (10:13)
--- NOTE | 2017-06-29 11:27 | PN ---
[facility]: Group Therapy Note - Service Type Service Type: 68583 Group Psychotherapy - Cognitive Behavioral Group Therapy ( CBT):Patient was attentive and participatory in CBT programming this morning, and remained in good behavioral control. Patient expressed positive insights regarding relevant treatment interventions and goals.
--- NOTE | 2017-06-29 14:24 | PN ---
Subjective - Subjective Date of Service: 06/29/17 Service Type: 27712 Hosp care 15 min low complexity Subjective: Justino continues to show evidence of paranoid thought process and confusion, although it is not as pronounced as over the weekend. She's accepted a few prn administrations of low-dose quetiapine for anxiety and is agreeable with starting this on a scheduled basis at night. She remains isolative in her room and has only come out for a few groups here and there. She makes paranoid statements to the effect that she doesn't want to return to [employer] to complete her degree because it's prejudicial and "I don't want to give [place] anymore of my information." She shows me a journal in which she's scrawled incoherent statements and people's names whom she says have in her life. She denies SI or HI but admits that she's having trouble organizing her thoughts. Objective - Appearance Appearance: Well Developed/Nourished Dysmorphic Features: No Hygiene: Normal Grooming: Well Kept - Behavior Psychomotor Activities: Normal Exhibits Abnormal Movement: No - Attitude and Relatedness Attitude and Relatedness: Psychotically Related Eye Contact: Fair - Speech Quality: Unpressured Latencies: Normal Quantity: Appropriate - Mood Patient's Decription of Mood: "Upset" - Affect Observed Affect: Expansive Affect Consistent with: Dysphoria - Thought Process Patient's Thought Process: Disorganized Thought Content: Yes Paranoid Ideation, No Passive Wish, No Suicidal Planning, No Homicidal Ideation - Sensorium Experiencing Hallucinations: No, Sensorium is Clear Type of Hallucinations: Visual: No, Auditory: No, Command: No - Level of Consciousness Level of Consciousness: Alert Orientation: Yes Intact, Yes Orientated to Time, Yes Orientated to Place, Yes Orientated to Person - Impulse Control Impulse Control: Poor - Insight and Judgement Insight and Judgement: Impaired - Group Participation Particating in Group Activities: No - Medication Management Medication Management Adherence: Yes Assessment - Assessment Merits Inpatient Hospitalization: For Immediate Safety, For Stabilization Inpatient DSM-V Dx: F29 Clinical Impression: 22 y.o. 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 Plan - Plan Treatment Plan: Name: JUSTINO PINK Birthdate: 1995 [id number] The patient remains psychotic despite detoxification from cannabis and other herbal supplements she was taking prior to admission. We are uncertain of the etiology: substance induced versus bipolar karen, although, the longer she remains paranoid and confused the more would seem to point to an underlying primary mental illness. We will start scheduled antipsychotic therapy with quetiapine 100mg PO qhs. Continue inpatient care. Continued Medication Management: Start Medication Medications: Current Medications Acetaminophen (Tylenol Tab*) 650 mg PO Q4H PRN PRN Reason: for pain; or Temp >101 F Last Admin: 06/28/17 12:41 Dose: 650 mg Al Hydrox/Mg Hydrox/Simethicone (Maalox Plus*) 30 ml PO Q4H PRN PRN Reason: INDIGESTION Quetiapine Fumarate (Seroquel Tab*) 50 mg PO Q6H PRN PRN Reason: ANXIETY Last Admin: 06/29/17 10:13 Dose: 50 mg Quetiapine Fumarate (Seroquel Tab*) 100 mg PO BEDTIME DREAD Throat Lozenges (Chloraseptic Marisela*) 1 marisela PO Q2H PRN PRN Reason: SORE THROAT Last Admin: 06/29/17 12:26 Dose: 1 marisela - Discharge Plan Discharge Plan: Inpatient Hospitalization
[2017-06-29] MEDS ORDERED: QUEtiapine TAB* 100 MG PO SCH (21:00)
[2017-06-30] MEDS: Benzocaine/Menthol LOZ* 1 LOZENGE PO PRN ×6 (04:03→21:07)
[2017-06-30] MEDS: QUEtiapine TAB* 25 MG PO PRN (08:01)
--- NOTE | 2017-06-30 12:14 | PN ---
Subjective - Subjective Date of Service: 06/30/17 Service Type: 57764 Hosp care 15 min low complexity Subjective: Justino is hyperverbal, somewhat paranoid and still pressured. She evidently feels triggered by her new roommate, who is also a [employer] undergraduate female. "She bothers me because I think she reminds me of another little girl I know on campus who was stalking me." She is odd at times, reporting for example that she's been dissolving her cough drops in her tea. She has been more social recently but was sleeping in her room when I entered and continues to need prn quetiapine for anxiety. I spoke with her mother, Chanelle Gamble ([phone]), who is supportive of the treatment plan. I understand that Justino' s father has travelled to [place] from [employer] to see her but Justino is resistant to this, describing him as manipulative and untrustworthy. We have respected her wishes by not allowing him to visit her on the [facility]. She denies SI or HI. Objective - Appearance Appearance: Thin Framed Dysmorphic Features: No Hygiene: Normal Grooming: Fairly Well Kept - Behavior Psychomotor Activities: Normal Exhibits Abnormal Movement: No - Attitude and Relatedness Attitude and Relatedness: Cooperative Eye Contact: Fair - Speech Quality: Pressured Latencies: Short Quantity: Copious - Mood Patient's Decription of Mood: "Anxious" - Affect Observed Affect: Expansive Affect Consistent with: Dysphoria - Thought Process Patient's Thought Process: Tangential Thought Content: Yes Paranoid Ideation, No Passive Wish, No Suicidal Planning, No Homicidal Ideation - Sensorium Experiencing Hallucinations: No, Sensorium is Clear Type of Hallucinations: Visual: No, Auditory: No, Command: No - Level of Consciousness Level of Consciousness: Alert Orientation: Yes Intact, Yes Orientated to Time, Yes Orientated to Place, Yes Orientated to Person - Impulse Control Impulse Control: Tenuous - Insight and Judgement Insight and Judgement: Fair - Group Participation Particating in Group Activities: No - Medication Management Medication Management Adherence: Yes Assessment - Assessment Merits Inpatient Hospitalization: For Immediate Safety, For Stabilization Inpatient DSM-V Dx: F29 Clinical Impression: 22 y.o. 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 Plan - Plan Treatment Plan: Name: JUSTINO PINK Birthdate: 1995 [id number] The patient remains psychotic and manic despite detoxification from cannabis and other herbal supplements she was taking prior to admission. We are uncertain of the etiology: substance-induced versus bipolar karen, although, the longer she remains paranoid and confused the more would seem to point to an underlying primary mental illness. We will increase scheduled quetiapine to 200mg PO qhs. Continue inpatient care. Continued Medication Management: Start Medication Medications: Current Medications Acetaminophen (Tylenol Tab*) 650 mg PO Q4H PRN PRN Reason: for pain; or Temp >101 F Last Admin: 06/28/17 12:41 Dose: 650 mg Al Hydrox/Mg Hydrox/Simethicone (Maalox Plus*) 30 ml PO Q4H PRN PRN Reason: INDIGESTION Throat Lozenges (Chloraseptic Ana Maria*) 1 ana maria PO Q2H PRN PRN Reason: SORE THROAT Last Admin: 06/30/17 10:24 Dose: 1 ana maria - Discharge Plan Discharge Plan: Inpatient Hospitalization
[2017-06-30] MEDS ORDERED: QUEtiapine TAB* 100 MG PO SCH (21:00)
[2017-07-01] MEDS: Benzocaine/Menthol LOZ* 1 LOZENGE PO PRN ×5 (08:04→23:57)
[2017-07-01] MEDS: QUEtiapine TAB* 25 MG PO PRN ×2 (08:04→16:27)
--- NOTE | 2017-07-01 13:25 | PN ---
Subjective - Subjective Date of Service: 07/01/17 Service Type: 13059 Hosp care 15 min low complexity Subjective: Justino was seen in her room along with medical student Milagro for follow up. We' ve had to move her to a private room because of her persecutory feelings towards her previous roommate. Justino remains tangential and overtalkative with elements of paranoia, such as when she describes her apprehension by police in her apartment prior to going to the ED before hospitalization. "They had hidden microphones and they were recording me." She states that she has experienced intermittent SI since high school but denies it currently. "I feel better about the future. I have a friend whose mother works at the [employer] [facility] [facility] in [place] and they are talking about wanting to work with me in an architecture internship." She complains of sedation from medication but is otherwise tolerating it well. Objective - Appearance Appearance: Well Developed/Nourished Dysmorphic Features: No Hygiene: Normal Grooming: Fairly Well Kept - Behavior Psychomotor Activities: Abnormal-Increased Exhibits Abnormal Movement: No - Attitude and Relatedness Attitude and Relatedness: Child Like Eye Contact: Fair - Speech Quality: Pressured Latencies: Short Quantity: Copious - Mood Patient's Decription of Mood: "Anxious" - Affect Observed Affect: Expansive Affect Consistent with: Dysphoria - Thought Process Patient's Thought Process: Tangential Thought Content: Yes Paranoid Ideation, No Passive Wish, No Suicidal Planning, No Homicidal Ideation - Sensorium Experiencing Hallucinations: No, Sensorium is Clear Type of Hallucinations: Visual: No, Auditory: No, Command: No - Level of Consciousness Level of Consciousness: Alert Orientation: Yes Intact, Yes Orientated to Time, Yes Orientated to Place, Yes Orientated to Person - Impulse Control Impulse Control: Poor - Insight and Judgement Insight and Judgement: Impaired - Group Participation Particating in Group Activities: Yes - Medication Management Medication Management Adherence: Yes Assessment - Assessment Merits Inpatient Hospitalization: For Immediate Safety, For Stabilization Inpatient DSM-V Dx: F29 Clinical Impression: 22 y.o. 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 Plan - Plan Treatment Plan: Name: JUSTINO PINK Birthdate: 1995 [id number] The patient remains psychotic and manic despite detoxification from cannabis and other herbal supplements she was taking prior to admission. We are becoming more convinced of a diagnosis of bipolar karen, given her long history of episodic depressive illness, refractory to antidepressant treatment, and the mixed manic nature of this current episode. We will increase scheduled quetiapine to 300mg PO qhs. Continue inpatient care. Continued Medication Management: Start Medication Medications: Current Medications Acetaminophen (Tylenol Tab*) 650 mg PO Q4H PRN PRN Reason: for pain; or Temp >101 F Last Admin: 06/28/17 12:41 Dose: 650 mg Al Hydrox/Mg Hydrox/Simethicone (Maalox Plus*) 30 ml PO Q4H PRN PRN Reason: INDIGESTION Quetiapine Fumarate (Seroquel Tab*) 25 mg PO Q6H PRN PRN Reason: ANXIETY Last Admin: 07/01/17 08:04 Dose: 25 mg Quetiapine Fumarate (Seroquel Tab*) 200 mg PO BEDTIME DREAD Last Admin: 06/30/17 21:07 Dose: 200 mg Throat Lozenges (Chloraseptic Marisela*) 1 marisela PO Q2H PRN PRN Reason: SORE THROAT Last Admin: 07/01/17 12:02 Dose: 1 marisela - Discharge Plan Discharge Plan: Inpatient Hospitalization
[2017-07-01] MEDS ORDERED: QUEtiapine TAB* 100 MG PO SCH (21:00)
[2017-07-02] MEDS: QUEtiapine TAB* 25 MG PO PRN ×2 (09:12→15:58)
[2017-07-02] MEDS: Benzocaine/Menthol LOZ* 1 LOZENGE PO PRN ×3 (09:12→21:25)
--- NOTE | 2017-07-02 14:26 | PN ---
Subjective - Subjective Date of Service: 07/02/17 Service Type: 05058 Hosp care 15 min low complexity Subjective: Justino continues to evidence core bipolar manic symptoms such as distractability , flight of ideas, hyperkinesis, sleeplessness and overtalkativeness. Her subjects bounce from one topic to another and she often loses track of what question she was asked. "I'm at risk for suicide and I know I need to be here but I feel like I'm thinking about the future more. I'm just annoyed at the things that I'm paying too much attention to." She is tolerating quetiapine well but is still not getting more than 4.5 hours of sleep per night. I do note that she's been out of her room and participating more on the milieu. Objective - Appearance Appearance: Thin Framed Dysmorphic Features: No Hygiene: Normal Grooming: Fairly Well Kept - Behavior Psychomotor Activities: Abnormal-Increased Exhibits Abnormal Movement: No - Attitude and Relatedness Attitude and Relatedness: Cooperative Eye Contact: Good - Speech Quality: Pressured Latencies: Short Quantity: Copious - Mood Patient's Decription of Mood: "Anxious" - Affect Observed Affect: Expansive Affect Consistent with: Dysphoria - Thought Process Patient's Thought Process: Tangential Thought Content: Yes Paranoid Ideation, No Passive Wish, No Suicidal Planning, No Homicidal Ideation - Sensorium Experiencing Hallucinations: No, Sensorium is Clear Type of Hallucinations: Visual: No, Auditory: No, Command: No - Level of Consciousness Level of Consciousness: Alert Orientation: Yes Intact, Yes Orientated to Time, Yes Orientated to Place, Yes Orientated to Person - Impulse Control Impulse Control: Poor - Insight and Judgement Insight and Judgement: Impaired - Group Participation Particating in Group Activities: Yes - Medication Management Medication Management Adherence: Yes Assessment - Assessment Merits Inpatient Hospitalization: For Immediate Safety, For Stabilization Inpatient DSM-V Dx: F29 Clinical Impression: 22 y.o. 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 Plan - Plan Treatment Plan: Name: JUSTINO FOSTER Birthdate: 1995 [id number] The patient remains psychotic and manic despite detoxification from cannabis and other herbal supplements she was taking prior to admission. We are becoming more convinced of a diagnosis of bipolar karen, given her long history of episodic depressive illness refractory to antidepressant treatment, and the mixed manic nature of this current episode. We will increase scheduled quetiapine to 400mg PO qhs. Continue inpatient care. Continued Medication Management: Start Medication Medications: Current Medications Acetaminophen (Tylenol Tab*) 650 mg PO Q4H PRN PRN Reason: for pain; or Temp >101 F Last Admin: 06/28/17 12:41 Dose: 650 mg Al Hydrox/Mg Hydrox/Simethicone (Maalox Plus*) 30 ml PO Q4H PRN PRN Reason: INDIGESTION Quetiapine Fumarate (Seroquel Tab*) 25 mg PO Q6H PRN PRN Reason: ANXIETY Last Admin: 07/02/17 09:12 Dose: 25 mg Throat Lozenges (Chloraseptic Marisela*) 1 marisela PO Q2H PRN PRN Reason: SORE THROAT Last Admin: 07/02/17 09:12 Dose: 1 marisela - Discharge Plan Discharge Plan: Inpatient Hospitalization
[2017-07-02] MEDS ORDERED: QUEtiapine TAB* 100 MG PO SCH (21:00)
[2017-07-03] MEDS: Benzocaine/Menthol LOZ* 1 LOZENGE PO PRN ×2 (12:33→21:34)
[2017-07-03] MEDS: Divalproex DR TAB(*) 250 MG PO SCH ×2 (13:11→21:32)
--- NOTE | 2017-07-03 14:07 | PN ---
Subjective - Subjective Date of Service: 07/03/17 Service Type: 24187 Hosp care 15 min low complexity Subjective: Justino continues to display clear evidence of karen. She is tangential and hyperverbal with paranoia. She complains of sedation with quetiapine 400mg but also reports that it's anxiolytic effect wears off too soon. She is educated about the rationale behind mood stabilizer treatment and agrees to a trial of Depakote. She denies SI today. Objective - Appearance Appearance: Thin Framed Dysmorphic Features: No Hygiene: Normal Grooming: Fairly Well Kept - Behavior Psychomotor Activities: Abnormal-Increased Exhibits Abnormal Movement: No - Attitude and Relatedness Attitude and Relatedness: Cooperative Eye Contact: Fair - Speech Quality: Pressured Latencies: Short Quantity: Copious - Mood Patient's Decription of Mood: "Anxious" - Affect Observed Affect: Expansive Affect Consistent with: Dysphoria - Thought Process Patient's Thought Process: Tangential Thought Content: Yes Paranoid Ideation, No Passive Wish, No Suicidal Planning, No Homicidal Ideation - Sensorium Experiencing Hallucinations: No, Sensorium is Clear Type of Hallucinations: Visual: No, Auditory: No, Command: No - Level of Consciousness Level of Consciousness: Alert Orientation: Yes Intact, Yes Orientated to Time, Yes Orientated to Place, Yes Orientated to Person - Impulse Control Impulse Control: Tenuous - Insight and Judgement Insight and Judgement: Fair - Group Participation Particating in Group Activities: Yes - Medication Management Medication Management Adherence: Yes Assessment - Assessment Merits Inpatient Hospitalization: For Immediate Safety, For Stabilization Inpatient DSM-V Dx: F29 Clinical Impression: 22 y.o. 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 Plan - Plan Treatment Plan: Name: JUSTINO PINK Birthdate: 1995 [id number] The patient remains psychotic and manic despite detoxification from cannabis and other herbal supplements she was taking prior to admission. We are becoming more convinced of a diagnosis of bipolar karen, given her long history of episodic depressive illness refractory to antidepressant treatment, and the mixed manic nature of this current episode. Per her preference we will change her quetiapine 300mg PO qhs with the XR formulation. We will also start a trial of Depakote 250mg PO BID. Continue inpatient care. Continued Medication Management: Different Medication Medications: Current Medications Acetaminophen (Tylenol Tab*) 650 mg PO Q4H PRN PRN Reason: for pain; or Temp >101 F Last Admin: 06/28/17 12:41 Dose: 650 mg Al Hydrox/Mg Hydrox/Simethicone (Maalox Plus*) 30 ml PO Q4H PRN PRN Reason: INDIGESTION Divalproex Sodium (Depakote Dr Tab(*)) 250 mg PO BID DREAD Last Admin: 07/03/17 13:11 Dose: 250 mg Quetiapine Fumarate (Seroquel Tab*) 25 mg PO Q6H PRN PRN Reason: ANXIETY Last Admin: 07/02/17 15:58 Dose: 25 mg Quetiapine Fumarate (Seroquel Xr Tab*) 300 mg PO BEDTIME DREAD Throat Lozenges (Chloraseptic Marisela*) 1 marisela PO Q2H PRN PRN Reason: SORE THROAT Last Admin: 07/03/17 12:33 Dose: 1 marisela - Discharge Plan Discharge Plan: Inpatient Hospitalization
[2017-07-03] MEDS: QUEtiapine TAB* 25 MG PO PRN (18:04)
[2017-07-03] MEDS: QUEtiapine XR TAB* 300 MG PO SCH (21:33)
[2017-07-04] MEDS: Divalproex DR TAB(*) 250 MG PO SCH ×2 (08:55→20:17)
[2017-07-04] MEDS: QUEtiapine TAB* 25 MG PO PRN (14:50)
[2017-07-04] MEDS: QUEtiapine XR TAB* 300 MG PO SCH (20:17)
[2017-07-04] MEDS: Benzocaine/Menthol LOZ* 1 LOZENGE PO PRN (21:26)
[2017-07-05] MEDS: Divalproex DR TAB(*) 250 MG PO SCH ×2 (09:17→20:53)
[2017-07-05] MEDS: QUEtiapine TAB* 25 MG PO PRN ×2 (10:05→17:41)
[2017-07-05] MEDS: Benzocaine/Menthol LOZ* 1 LOZENGE PO PRN (20:53)
[2017-07-05] MEDS: QUEtiapine XR TAB* 300 MG PO SCH (20:53)
[2017-07-06] MEDS: Divalproex DR TAB(*) 250 MG PO SCH ×2 (09:14→21:35)
[2017-07-06] MEDS: Benzocaine/Menthol LOZ* 1 LOZENGE PO PRN ×2 (09:14→21:35)
[2017-07-06] MEDS: QUEtiapine TAB* 25 MG PO PRN (10:25)
--- NOTE | 2017-07-06 15:22 | PN ---
Subjective - Subjective Date of Service: 07/06/17 Service Type: 09959 Hosp care 15 min low complexity Subjective: Justino is seen along with SW Windy Saleem for follow up. She remains hyperverbal and tends to go on at great lengths from one subject to the next. Despite this, she is much more reality-focussed and sequential in her thinking than earlier in this hospitalization, talking for example about how she will manage her academic situation and what sort of treatment she will get after discharge. She is tolerating her medications well but feels like her prn quetiapine should be more long-lasting. She requests switching that to XR as well. She denies SI or HI. There is no overt evidence of paranoia today. Objective - Appearance Appearance: Well Developed/Nourished, Thin Framed Dysmorphic Features: No Hygiene: Normal Grooming: Fairly Well Kept - Behavior Psychomotor Activities: Normal Exhibits Abnormal Movement: No - Attitude and Relatedness Attitude and Relatedness: Cooperative Eye Contact: Fair - Speech Quality: Pressured Latencies: Short Quantity: Copious - Mood Patient's Decription of Mood: "Anxious" - Affect Observed Affect: Expansive Affect Consistent with: Euthymia - Thought Process Patient's Thought Process: Tangential Thought Content: No Passive Wish, No Suicidal Planning, No Homicidal Ideation, No Paranoid Ideation - Sensorium Experiencing Hallucinations: No, Sensorium is Clear Type of Hallucinations: Visual: No, Auditory: No, Command: No - Level of Consciousness Level of Consciousness: Alert Orientation: Yes Intact, Yes Orientated to Time, Yes Orientated to Place, Yes Orientated to Person - Impulse Control Impulse Control: Tenuous - Insight and Judgement Insight and Judgement: Fair - Group Participation Particating in Group Activities: Yes - Medication Management Medication Management Adherence: Yes Assessment - Assessment Merits Inpatient Hospitalization: Consolidate Improvements, Pending Safe DC Plan Inpatient DSM-V Dx: F29 Clinical Impression: 22 y.o. 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 Plan - Plan Treatment Plan: Name: JUSTINO FOSTER Birthdate: 1995 [id number] The patient's mixed karen is improving on quetiapine XR 300mg PO qhs and Depakote 250mg PO BID. Will get a VPA level in the AM. Family meeting with her mother tomorrow (07/07) at 11:30. Will increase prn for anxiety to quetiapine 50mg PO qday. Target d/c for Thursday, July 08. Continued Medication Management: Different Medication Medications: Current Medications Acetaminophen (Tylenol Tab*) 650 mg PO Q4H PRN PRN Reason: for pain; or Temp >101 F Last Admin: 06/28/17 12:41 Dose: 650 mg Al Hydrox/Mg Hydrox/Simethicone (Maalox Plus*) 30 ml PO Q4H PRN PRN Reason: INDIGESTION Divalproex Sodium (Depakote Dr Tab(*)) 250 mg PO BID [facility] Last Admin: 07/06/17 09:14 Dose: 250 mg Quetiapine Fumarate (Seroquel Xr Tab*) 300 mg PO BEDTIME [facility] Last Admin: 07/05/17 20:53 Dose: 300 mg Quetiapine Fumarate (Seroquel Xr Tab*) 50 mg PO DAILY PRN PRN Reason: ANXIETY Throat Lozenges (Chloraseptic Marisela*) 1 marisela PO Q2H PRN PRN Reason: SORE THROAT Last Admin: 07/06/17 09:14 Dose: 1 marisela - Discharge Plan Discharge Plan: Outpatient Follow Up
[2017-07-06] MEDS: QUEtiapine XR TAB* 300 MG PO SCH (21:35)
[2017-07-07] MEDS ORDERED: Divalproex ER TAB(*) 250 MG ONE (07:51)
[2017-07-07 08:17] LABS: EGFR Non-African American 103.7 (>60)
[2017-07-07] MEDS: Divalproex DR TAB(*) 250 MG PO SCH ×2 (09:18→20:47)
--- NOTE | 2017-07-07 11:33 | PN ---
[facility]: Group Therapy Note - Service Type Service Type: 34256 Group Psychotherapy - Cognitive Behavioral Group Therapy ( CBT):Patient was attentive and participatory in CBT programming this morning, and remained in good behavioral control. Patient expressed positive insights regarding relevant treatment interventions and goals.
--- NOTE | 2017-07-07 13:23 | PN ---
Subjective - Subjective Date of Service: 07/07/17 Service Type: 86989 Family Medical Psyc Subjective: Justino is seen today with her mother, Chanelle Gamble, and ARAVIND Monge, for a discharge planning family meeting. Support and psychoeducation are provided to the patient and her mother, along with some discussion about how and when the patient will follow up and what her expectations for treatment should be. Justino remains hyperverbal but is able to synthesize the information of the meeting well, asking good questions and clearly demonstrating her understanding of bipolar illness. Her mother has some apprehension about accepting the diagnosis, particularly since Justino has been on numerous medications, cannabis and herbal substances prior to admission and faced with several other psychosocial stressors. They continue to endorse the plan of pursuing a medical withdrawal from this semester at [employer] in the hopes that she will be well enough to complete her education in the Fall. Justino is to return home to the [place] area this weekend but then return for commencement, as the school is apparently allowing her to walk for graduation ceremonies. The patient is strongly encouraged to avoid substances such as antidepressants, stimulants, cannabinoids and other illicit drugs, as well as poorly studies herbal medicines. She continues to deny SI and is future-oriented, stating that she is looking forward to doing some light gardening and walking when she returns home. Her mother is strongly in agreement with the discharge plan and has a therapist set up in [place]. Objective - Appearance Appearance: Well Developed/Nourished Dysmorphic Features: No Hygiene: Normal Grooming: Well Kept - Behavior Psychomotor Activities: Normal Exhibits Abnormal Movement: No - Attitude and Relatedness Attitude and Relatedness: Cooperative Eye Contact: Good - Speech Quality: Pressured Latencies: Short Quantity: Copious - Mood Patient's Decription of Mood: "Good" - Affect Observed Affect: Good Affect Consistent with: Euthymia - Thought Process Patient's Thought Process: Tangential Thought Content: No Passive Wish, No Suicidal Planning, No Homicidal Ideation, No Paranoid Ideation - Sensorium Experiencing Hallucinations: No, Sensorium is Clear Type of Hallucinations: Visual: No, Auditory: No, Command: No - Level of Consciousness Level of Consciousness: Alert Orientation: Yes Intact, Yes Orientated to Time, Yes Orientated to Place, Yes Orientated to Person - Impulse Control Impulse Control: Tenuous - Insight and Judgement Insight and Judgement: Fair - Group Participation Particating in Group Activities: Yes - Medication Management Medication Management Adherence: Yes Assessment - Assessment Merits Inpatient Hospitalization: Consolidate Improvements, Pending Safe DC Plan Inpatient DSM-V Dx: F29 Clinical Impression: 22 y.o. 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 Plan - Plan Treatment Plan: Name: JUSTINO PINK Birthdate: 1995 [id number] The patient's mixed karen is improving on quetiapine XR 300mg PO qhs and Depakote 250mg PO BID. VPA level is therapeutic at 70. Target d/c for tomorrow , Thursday, July 08. Continued Medication Management: Start Medication Medications: Current Medications Acetaminophen (Tylenol Tab*) 650 mg PO Q4H PRN PRN Reason: for pain; or Temp >101 F Last Admin: 06/28/17 12:41 Dose: 650 mg Al Hydrox/Mg Hydrox/Simethicone (Maalox Plus*) 30 ml PO Q4H PRN PRN Reason: INDIGESTION Divalproex Sodium (Depakote Dr Tab(*)) 250 mg PO BID [facility] Last Admin: 07/07/17 09:18 Dose: 250 mg Quetiapine Fumarate (Seroquel Xr Tab*) 300 mg PO BEDTIME [facility] Last Admin: 07/06/17 21:35 Dose: 300 mg Quetiapine Fumarate (Seroquel Xr Tab*) 50 mg PO DAILY PRN PRN Reason: ANXIETY Throat Lozenges (Chloraseptic Marisela*) 1 marisela PO Q2H PRN PRN Reason: SORE THROAT Last Admin: 07/06/17 21:35 Dose: 1 marisela - Discharge Plan Discharge Plan: Outpatient Follow Up [facility] Lab Results - Lab Results Lab Results: 07/07/17 07:21 Sodium 140 Potassium 4.1 Chloride 104 Carbon Dioxide 28 Anion Gap 8 BUN 9 Creatinine 0.70 Est GFR ( Amer) 133.4 Est GFR (Non-Af Amer) 103.7 BUN/Creatinine Ratio 12.9 Glucose 84 Calcium 9.0 Total Bilirubin 0.30 AST 13 ALT 12 Alkaline Phosphatase 50 Total Protein 6.4 Albumin 3.6 Globulin 2.8 Albumin/Globulin Ratio 1.3 TSH 2.34 Valproic Acid 70.0
[2017-07-07] MEDS: QUEtiapine XR TAB* 50 MG PO PRN (14:52)
[2017-07-07] MEDS: QUEtiapine XR TAB* 300 MG PO SCH (20:47)
[2017-07-08] MEDS: Divalproex DR TAB(*) 250 MG PO SCH (09:03)
[2017-07-08 10:10] VITALS: BP 104/69
[2017-07-08] MEDS: QUEtiapine XR TAB* 50 MG PO PRN (13:28)
--- NOTE | 2017-07-08 17:15 | DS ---
DATE OF ADMISSION: 06/26/2017. DATE OF DISCHARGE: 07/08/2017. DISCHARGE DIAGNOSES: AXIS I: Bipolar disorder, most recent episode mixed, severe with psychotic features; cannabis use di sorder; attention deficit hyperactivity disorder by history. AXIS II: Deferred. CONDITION AT THE TIME OF DISCHARGE: Improved. The patient is no longer evidencing psychotic thought process. She is no longer paranoid or confused. She is very much future oriented with a plan to wanda and follow-up at [facility]. Thereafter, she will be returning briefly to the [facility] with her mother, but then returning to the campus of [employer] [facility] [employer] to walk for gradua tion. Thereafter, she has some academic issues to take care of before she will officially graduate, b ut she is grateful to the [place] for allowing her to walk across the stage with her peers. She i s denying suicidal ideations. We have had a constructive family meeting with her mother wherein the mother has been very grateful for the services rendered to [facility] and is very much willing and eager to take her home. The patient has close follow-up in the community with appointments both one day an d two days following discharge. Although she remains somewhat hyperverbal with tangential thought pr ocess, our feeling is that now that she is on a therapeutic dose of Depakote, that these symptoms natali l migue in time and that she is safe to receive treatment in the outpatient setting. The patient is appropriately requesting discharge, feeling like she has gotten a lot out of being here. She has bee n fully participatory in groups, safe on all checks, and we do not believe that there is any rational e for further involuntary treatment. The patient will peanut picker her medications at the [facility] and she knows how to access care at [facility] having been a patient there for over the past year. MENTAL STATUS EXAMINATION AT THE TIME OF DISCHARGE: The patient is a young, somewhat petite, -[place] Citizen female with long dreadlock hair, partially in tressa. She is calm, cooperative, and easy t o establish a rapport with. Speech is hyperverbal, but she is interruptible. Mood is slightly hypom anic with a full affect. Thought process is linear, but tangential. Thought content is significant for her desire to get her academic situation under control so that she can graduate. She is denying suicidal or homicidal ideations. Insight and judgment are fair given her willingness to follow-up wi outpatient treatment and discontinue cannabis abuse. Cognitively, she is awake and alert with wha t would appear to be a slightly high average intellect by virtue of her academic attainment. LABORATORY DATA: Metabolic studies were completed on the 25 of June and shows that her hemoglobin A1c was 4.9 percent, triglycerides 95, cholesterol 150, LDL 50, and HDL 81.5. DISCHARGE INSTRUCTIONS TO THE PATIENT: A. Medication: She is taking Quetiapine XR 50 mg p.o. daily as a prn for anxiety, she takes Depakote 250 mg p.o. b.i.d., she take Quetiapine XR 300 mg p.o. at bedtime. B. Diet: Regular. C. Activities: As tolerated. The patient is a nonsmoker. There are no laboratory or diagnostic st udies pending at the time of discharge. D. Follow-up care: The patient will see psychiatric nurse practitioner Yohana Sanchez tomorrow which is 07/09/2017 at 3:00 p.m. The following day on July 10, she has a follow-up appointment wit her outpatient therapist Zita Odell. E. Substance abuse follow-up: A prescription for an FDA approved medication for cannabis use disord er was not offered at discharge given the fact that there are no FDA medications for cannabis use dis order. 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 The patient was accompanied by her mother, Chanelle, who indicates that she lives in [place] and was called several days ago by one of the yaneth donahue's friends indicating that Cecilia had been acting strangely. The mother promptly got a plane ticke t to come to [place], and in the intervening time a friend called the police and 911 and the patient w as thereafter transferred to the emergency room. At that time, she was briefly evaluated in the ED f perry space, but was extremely tachycardic despite receiving p.o. Ativan. For this reason, she was ins tead hospitalized on the Medical service. There I tried to interview her on 25 of June; however, she was extremely sedated and her mother was not present at that time. I was able to reach her outpa tient therapist, a woman named Zita Kira who indicated that the patient has historically p resented with depression and attention problems, but during their last visit one week prior to admiss viktoriya, she had noted that the patient was speaking very fast. She appeared to be labile, bursting into tears at times. She denied suicidal or homicidal ideations and they allowed her to leave with a pretty nned follow-up later this week. Zita was aware of occasional THC usage as well as two recent losse s; one of the patient's friends of suicide in December of 2016 and a half year earlier the patien loren had lost a separate friend to heart failure. She had recently taken a semester off due to an intra ctable anxiety problem and she was currently a 5th year senior because of this. Later I spoke with loren lopez patient's outpatient nurse practitioner, Yohana Sanchez, who states that she had recently started wo rking with Cecilia in March and that she had a historic diagnoses of anxiety, depression, and ADHD. They altered her Vyvanse dosing, but she continued to have trouble sleeping and low appetite, and th e patient was thereafter started on a trial of Mirtazapine. On the date of admission, I re-evaluated the patient and found her awake and alert in bed. She was accompanied by her mother, Chanelle. Kumar harrell immediately showed me her phone in which she had typed down some odd statements that Cecilia had be en making during the day to the effect that she was turning into a turtle and that she was angry. Wh en I spoke with Cecilia, at times she had moments of lucidity, but at other times she was bizarre; for example, making statements that "I think in color, but the TV is in black and white, I have no finge rprints." She was also mentioning that she had a glass bong that she had lost within a pool of water . For these reasons, I strongly suggested transfer to the inpatient psychiatric service and both the mother and the patient were agreeable with this. In terms of stressors, the patient has been strugg ling in school, experienced several recent loss of friends and extended family members. She was also feeling unsupported and belittled by classmates with whom she had mutual projects. She was supposed to graduate in three weeks from [employer] [facility] [employer] and had no current plans for what she should do t hereafter. It is notable that she had newly taking an herbal supplement called adaptogen. It is unc ertain whether these contributed to her current mental state. I did note that her urine drug screen was dirty for cannabis and that she is a somewhat chronic cannabis smoker. HOSPITAL COURSE - PART B: Psychiatric treatment rendered: The patient was admitted to the [facility] Unit where she was placed on q.15 minute checks for her own safety. Initially, we were wondering whether the etiology may be substance induced given her use of multiple recent medications as well as herbal substances and cannabis. We simply treated her conservatively on our unit for the f irst several days to see if perhaps drug detoxification was sufficient to get her functioning better. Unfortunately, she showed very limited evidence of improvement and we became more confident at that time that her history was consistent with that of bipolar disorder and that this is her first formal manic episode. Thereafter, we started her on a trial of Quetiapine which was ultimately increased to 400 mg in a stepwise fashion. This was too sedating and we reduced it and switched it to the XR for mulation at 300 mg nightly. She seemed to struggle with anxiety during the day which we treated with lose dose Seroquel XR at the 50 mg dose. In addition, we started her on the mood stabilizer Depakot e at 250 mg twice daily. Her therapeutic drug level on July 07, was 70 which is in the effe ctive therapeutic range. We had numerous interactions with her mother who tended to be somewhat hyper verbal and pressured herself. Nonetheless, the mother was very supportive and very eager for the pat ient to return home. We had contact with [employer] [facility] [employer] in terms of facilitating an academic wit hdraw from classes. It appears at this time that they will allow her to walk across the graduation s tage with her peers, but that she will have some work to do over the summer and perhaps [facility] and graduate. The patient improved greatly once medications were initiated. I will say that at the time of discharge, she remains somewhat pressured with tangential thought process; h owever, she is no longer paranoid and tolerates her medications quite well. She did at times early i n the hospitalization talk about previous suicidality, but this was never current and she continued t o deny current suicidal ideations right up until the day of discharge. She knows that if she has any resumption and suicidality, she can return to the emergency room for acute treatment. Her mother is agreeable with the discharge plan and will be picking her up. She will be following up tomorrow and the day after at [facility] here in [place]. This summer when they are back in [facility], they already have clinician's that they can work with in that community. [id number]/[facility] #: [id number]
== END 2017-07-08 13:30 | disposition home or self-care (01) | DRG 885 ==
LOC: BSU 16:23
PROVIDERS: ADMIT Psychiatry & Neurology Psychiatry; ATTEND Psychiatry & Neurology Psychiatry
PROC: GZHZZZZ Group Psychotherapy (ICD-10-PCS; principal; 2017-06-29)
DX: F31.64 Bipolar disorder, current episode mixed, severe, with psychotic features (principal); F90.9 Attention-deficit hyperactivity disorder, unspecified type; F41.9 Anxiety disorder, unspecified; F12.10 Cannabis abuse, uncomplicated; F29 Unspecified psychosis not due to a substance or known physiological condition
CPT/HCPCS: 36415; 80053; 80164; 84443; 90847; 90853; 99222; 99231; 99238; A9270-GY